=== PATIENT | female | born 1980 | race Caucasian/White ===

== ENCOUNTER → 2019-05-19 | Outpatient (CLI) | payer OTHER ==
[~2019-05-19] MED LIST: ACEBUTCAFT PO; AMOX500 PO; ONDA4ODT MM
== END | disposition home or self-care (01) ==
LOC: PLD 08:08 → LAB SHORT 08:08
DX: L72.0 Epidermal cyst (principal)
CPT/HCPCS: 88304

== ENCOUNTER → 2019-07-04 | Outpatient (CLI) | payer OTHER ==
[2019-07-04 18:51] LABS: Influenza A Negative (NEGATIVE); Influenza B Negative (NEGATIVE)
== END ==
LOC: LAB SHORT 11:40 → LAB 11:40
PROVIDERS: Nurse Practitioner Family
DX: R05 Cough (principal)
CPT/HCPCS: 87804

== ENCOUNTER → 2020-02-03 | Outpatient (CLI) | payer OTHER ==
[2020-02-05 13:08] LABS: HPV 16 Negative (Negative); HPV 18 Negative (Negative); HPV OTHER HR TYPES Negative (Negative)
== END ==
LOC: LAB UCHC 12:50 → LAB SHORT 12:50
PROVIDERS: Registered Nurse Community Health
DX: Z12.4 Encounter for screening for malignant neoplasm of cervix (principal); N94.89 Other specified conditions associated with female genital organs and menstrual cycle; N89.8 Other specified noninflammatory disorders of vagina
CPT/HCPCS: 87070; 87205; 87529; 87624; G0123

== ENCOUNTER → 2021-04-19 | Outpatient (CLI) | payer OTHER ==
[2021-04-19 15:58] LABS: BASOPHILS ABSOLUTE AUTO 0.03 K/mm3 (0.00-0.23); BASOPHILS PERCENT AUTO 0 % (0-2); EOSINOPHILS PERCENT AUTO 3 % (0-6); Hematocrit 36.4 % (33.0-51.0); IMMATURE GRAN ABSOLUTE AUTO 0.02 K/mm3 (0.00-0.10); IMMATURE GRAN PERCENT AUTO 0 % (0-1); LYMPHOCYTES ABSOLUTE AUTO 2.62 K/mm3 (0.84-5.20); LYMPHOCYTES PERCENT AUTO 29 % (21-46); MONOCYTES ABSOLUTE AUTO 0.46 K/mm3 (0.16-1.47); MONOCYTES PERCENT AUTO 5 % (4-13); Mean Corpuscular HGB 29.7 pg (26.0-34.0); Mean Corpuscular Volume 90 fL (80-100); Mean Platelet Volume 10.5 fL (9.1-12.4); NEUTROPHILS PERCENT AUTO 62 % (41-73); Platelet Count 285 K/mm3 (150-400); RDW Coefficient Variation 13.3 % (11.7-14.2); RDW Standard Deviation 44.3 fL (35.1-46.3); Red Blood Cell Count 4.04 M/mm3 (3.80-5.20); White Blood Cell Count 9.03 K/mm3 (4.00-11.30)
[2021-04-19 16:45] LABS: Anion Gap 6 mmol/L (6-16); Blood Urea Nitrogen 11 mg/dL (8-24); Bun/Creatinine Ratio 14.1 (12.0-20.0); CO2, Blood 27 mmol/L (21-32); Calcium, Blood 9.1 mg/dL (8.5-10.1); Chloride, Blood 107 mmol/L (98-108); Creatinine, Blood 0.78 mg/dL (0.40-1.00); Glomerular Filtration Rate >60 (60-); Glucose, Blood 88 mg/dL (70-99); Sodium, Blood 140 mmol/L (136-145)
== END | disposition home or self-care (01) ==
LOC: LAB SHORT 12:00
PROVIDERS: Family Medicine
DX: I10 Essential (primary) hypertension (principal)
CPT/HCPCS: 80048; 82043; 85025

== ENCOUNTER 2022-08-01 15:28 | Emergency (ER) | payer OTHER ==
[~2022-08-01] VITALS: Ht 180.3 cm; Wt 167.8 kg
[2022-08-01 15:55] LABS: BASOPHILS ABSOLUTE AUTO 0.03 K/mm3 (0.00-0.23); BASOPHILS PERCENT AUTO 0 % (0-2); EOSINOPHILS ABSOLUTE AUTO 0.05 K/mm3 (0.00-0.68); EOSINOPHILS PERCENT AUTO 0 % (0-6); Hematocrit 39.4 % (33.0-51.0); Hemoglobin 13.5 g/dL (11.5-16.0); IMMATURE GRAN ABSOLUTE AUTO 0.11 K/mm3 (0.00-0.10); IMMATURE GRAN PERCENT AUTO 1 % (0-1); LYMPHOCYTES ABSOLUTE AUTO 0.93 K/mm3 (0.84-5.20); LYMPHOCYTES PERCENT AUTO 5 % (21-46); MONOCYTES PERCENT AUTO 3 % (4-13); Mean Corpuscular HGB 28.8 pg (26.0-34.0); Mean Corpuscular HGB Conc 34.3 g/dL (31.5-36.5); Mean Corpuscular Volume 84 fL (80-100); Mean Platelet Volume 10.6 fL (9.1-12.4); NEUTROPHILS ABSOLUTE AUTO 18.57 K/mm3 (1.96-9.15); NEUTROPHILS PERCENT AUTO 92 % (41-73); Platelet Count 223 K/mm3 (150-400); RDW Coefficient Variation 14.4 % (11.7-14.2); RDW Standard Deviation 43.8 fL (35.1-46.3); Red Blood Cell Count 4.69 M/mm3 (3.80-5.20); White Blood Cell Count 20.29 K/mm3 (4.00-11.30)
[2022-08-01 16:27] LABS: Influenza A, PCR NEGATIVE (NEGATIVE); Influenza B, PCR NEGATIVE (NEGATIVE); Resp Syncytial Virus, PCR NEGATIVE (NEGATIVE); SARS-Cov-2 (COVID-19) PCR, MMC NEGATIVE (NEGATIVE)
[2022-08-01 16:29] LABS: Albumin, Blood 2.7 g/dL (3.4-5.0); Albumin/Globulin Ratio 0.6 (0.8-1.8); Bilirubin, Total 0.8 mg/dL (0.1-1.0); Bun/Creatinine Ratio 20.9 (12.0-20.0); Calcium, Blood 9.1 mg/dL (8.5-10.1); Creatinine, Blood 1.29 mg/dL (0.40-1.00); Globulin, Blood 4.5 g/dL (2.2-4.0); Potassium, Blood 3.1 mmol/L (3.5-5.5); Total Protein, Blood 7.2 g/dL (6.4-8.2)
[2022-08-01] MEDS ORDERED: ONDA4ODT MM (19:11)
[2022-08-01] MEDS ORDERED: CEPH500 PO (19:11)
[2022-08-01 19:35] LABS: Calcium, Ionized (POC) 1.01 mmol/L (1.10-1.46); Chloride (POC) 98 mmol/L (98-108); Creatinine (POC) 1.5 mg/dL (0.6-1.0); Glucose (ISTAT POC) 99 mg/dL (70-99); Hemoglobin (POC) 10.9 g/dL (12.0-16.0); Potassium (POC) 3.2 mmol/L (3.5-5.5); Sodium (POC) 135 mmol/L (135-148); Total CO2 (POC) 26 mmol/L (21-32)
[2022-08-01 20:02] LABS: Calcium, Blood 7.9 mg/dL (8.5-10.1); Creatinine, Blood 1.27 mg/dL (0.40-1.00); Potassium, Blood 3.3 mmol/L (3.5-5.5)
== END 2022-08-01 20:45 | disposition home or self-care (01) ==
LOC: ER 15:28
PROVIDERS: Physician Assistant; Student in an Organized Health Care Education/Training Program
DX: L03.116 Cellulitis of left lower limb (principal); R11.2 Nausea with vomiting, unspecified; E86.0 Dehydration; E87.6 Hypokalemia; N17.9 Acute kidney failure, unspecified; R19.7 Diarrhea, unspecified; Z20.822 Contact with and (suspected) exposure to COVID-19; I10 Essential (primary) hypertension
CPT/HCPCS: 0241U; 36415; 80047; 80048; 80053; 83605; 83690; 85014; 85025; 93971; 96361; 96374; 96375; 99284-25; A9270; J0690; J2405; J7030

== ENCOUNTER 2022-08-04 19:36 | Inpatient (IN) | payer OTHER ==
[~2022-08-04] VITALS: Ht 180.3 cm; Wt 162.0 kg
[~2022-08-04 19:36] MED LIST changes: +CEPH500 PO
[2022-08-04 22:49] LABS: Hematocrit 33.7 % (33.0-51.0); Hemoglobin 11.6 g/dL (11.5-16.0); Mean Corpuscular HGB Conc 34.4 g/dL (31.5-36.5); Mean Corpuscular Volume 84 fL (80-100); Platelet Count 360 K/mm3 (150-400); RDW Coefficient Variation 14.7 % (11.7-14.2); RDW Standard Deviation 45.8 fL (35.1-46.3); White Blood Cell Count 25.36 K/mm3 (4.00-11.30)
[2022-08-04 23:06] LABS: Albumin/Globulin Ratio 0.4 (0.8-1.8); Bilirubin, Total 0.3 mg/dL (0.1-1.0); Calcium, Blood 8.8 mg/dL (8.5-10.1); Creatinine, Blood 0.9 mg/dL (0.40-1.00); Globulin, Blood 5.1 g/dL (2.2-4.0); Potassium, Blood 3.3 mmol/L (3.5-5.5); Total Protein, Blood 7.1 g/dL (6.4-8.2)
[2022-08-04 23:12] LABS: BAND PERCENT MAN 11 % (0-8); BASOPHILS PERCENT MAN 0 % (0-2); EOSINOPHILS ABSOLUTE MAN 0.25 K/mm3 (0.00-0.68); EOSINOPHILS PERCENT MAN 1 % (0-6); LYMPHOCYTES ABSOLUTE MAN 1.01 K/mm3 (0.84-5.20); LYMPHOCYTES PERCENT MAN 4 % (21-46); MONOCYTES ABSOLUTE MAN 1.52 K/mm3 (0.16-1.47); MONOCYTES PERCENT MAN 6 % (4-13); MYELOCYTE PERCENT MAN 2 % (0-0); NEUTROPHILS ABSOLUTE MAN 22.06 K/mm3 (1.96-9.15); SEG NEUTROPHILS PERCENT MAN 76 % (41-73); TOTAL CELLS COUNTED 100
--- NOTE | 2022-08-05 00:57 | NUR ---
REPORT FROM [facility] D[facility] IN ER. PATIENT CURRENTLY RECEIVING 1ST SEPSIS BOLUS AND ZOSYN. 2ND BOLUS AND VANCOMYCIN HAVE ALSO BEEN ORDERED. WILL NOTIFY HOSPITALIST OF PATIENT'S ARRIVAL
[2022-08-05] MEDS ORDERED: AMPDEX15CR PO (04:34)
[2022-08-05] MEDS ORDERED: Lisinopril-Hct1 EAC4 (04:42)
[2022-08-05 05:19] LABS: Hematocrit 30.3 % (33.0-51.0); Hemoglobin 10.5 g/dL (11.5-16.0); Mean Corpuscular HGB 29.2 pg (26.0-34.0); Mean Corpuscular HGB Conc 34.7 g/dL (31.5-36.5); Mean Corpuscular Volume 84 fL (80-100); Platelet Count 344 K/mm3 (150-400); RDW Coefficient Variation 14.8 % (11.7-14.2); RDW Standard Deviation 45.8 fL (35.1-46.3); Red Blood Cell Count 3.59 M/mm3 (3.80-5.20)
[2022-08-05 05:55] LABS: Albumin, Blood 1.7 g/dL (3.4-5.0); Albumin/Globulin Ratio 0.4 (0.8-1.8); Bilirubin, Total 0.3 mg/dL (0.1-1.0); Bun/Creatinine Ratio 22.1 (12.0-20.0); Creatinine, Blood 0.72 mg/dL (0.40-1.00); Globulin, Blood 4.5 g/dL (2.2-4.0); Potassium, Blood 3.4 mmol/L (3.5-5.5); Total Protein, Blood 6.2 g/dL (6.4-8.2)
[2022-08-05 06:01] LABS: BAND PERCENT MAN 22 % (0-8); BASOPHILS PERCENT MAN 0 % (0-2); EOSINOPHILS PERCENT MAN 0 % (0-6); LYMPHOCYTES ABSOLUTE MAN 0.93 K/mm3 (0.84-5.20); LYMPHOCYTES PERCENT MAN 4 % (21-46); METAMYELOCYTE ABSOLUTE MAN 0.23 K/mm3 (0.00-0.00); METAMYELOCYTE PERCENT MAN 1 % (0-0); MONOCYTES ABSOLUTE MAN 1.17 K/mm3 (0.16-1.47); MONOCYTES PERCENT MAN 5 % (4-13); MYELOCYTE ABSOLUTE MAN 0.23 K/mm3 (0.00-0.00); MYELOCYTE PERCENT MAN 1 % (0-0); NEUTROPHILS ABSOLUTE MAN 20.82 K/mm3 (1.96-9.15); SEG NEUTROPHILS PERCENT MAN 67 % (41-73); TOTAL CELLS COUNTED 100
--- NOTE | 2022-08-05 08:25 | NUR ---
PATIENT ARRIVED TO ROOM 204 AROUND 0145 FROM ER. SHE IS A PLEASANT A&OX4 LADY WHO IS INDEPENDENT FROM BEDSIDE TO BEDSIDE COMMODE. LEFT OPEN BLISTER MEDIAL CALF DRAINING LARGE AMOUNTS OF SEROUS FLUIDS. HEAVY DISPOSABLE PADS REPLACED FREQUENTLY THROUGH THE NIGHT THEY SATURATED. PHOTOS ON CHART. BOLUS FLUIDS GIVEN PER ORDER SOON PATIENT ARRIVED. BOTH BAGS WELL VANCOMYCIN FINISHED BY O4OO. ONCOMING RN AND THIS RN DECIDED AGAINST DRESSING THE WOUND AT THIS TIME AND CONTINUING TO CHANGE THE PADS FREQUENTLY UNDERNEATH HER CALF
--- NOTE | 2022-08-05 17:09 | NUR ---
SHIFT SUMMARY PT AWAKE DURING SHIFT REPORT. ADMITTED FOR LLE CELLULITIS WITH WEEPING LRG BLISTERS TO LEG; PIC'S IN CHART. LRG AMT OF CONTINUOUS DRAINING; HEAVY PADS CHANGED FREQUENTLY. PT IS A&O, VERY PLEASANT AND CO-OP, CALLS FOR STAND BY ASSIST TO BTHRM. C/O PAIN TO L LEG AND REQUESTED PAIN MEDICATION, BUT DID NOT WANT TO TAKE FENTANYL. PT REPORTED TYLENOL INEFFECTIVE. DR JIMNEEZ NOTIFIED; NEW ORDERS PLACED. PT REPORTED ULTRAM VERY EFFECTIVE. VISITOR TO THIS AM FOR A WHILE. NAPPING OFF AND ON THIS AFTERNOON. DENIED FURTHER NEEDS. CALL LT IN REACH.
[2022-08-06 03:22] LABS: Hematocrit 29.5 % (33.0-51.0); Mean Corpuscular HGB 29.1 pg (26.0-34.0); Mean Corpuscular HGB Conc 33.9 g/dL (31.5-36.5); Mean Corpuscular Volume 86 fL (80-100); Mean Platelet Volume 9.6 fL (9.1-12.4); Platelet Count 366 K/mm3 (150-400); RDW Coefficient Variation 15.2 % (11.7-14.2); Red Blood Cell Count 3.44 M/mm3 (3.80-5.20); White Blood Cell Count 21.01 K/mm3 (4.00-11.30)
[2022-08-06 03:46] LABS: Albumin, Blood 1.9 g/dL (3.4-5.0); Albumin/Globulin Ratio 0.4 (0.8-1.8); Bilirubin, Total 0.3 mg/dL (0.1-1.0); Bun/Creatinine Ratio 13.3 (12.0-20.0); Calcium, Blood 8.1 mg/dL (8.5-10.1); Creatinine, Blood 0.68 mg/dL (0.40-1.00); Globulin, Blood 4.4 g/dL (2.2-4.0); Magnesium, Blood 2.3 mg/dL (1.6-2.4); Phosphorus, Blood 2.9 mg/dL (2.5-4.9); Potassium, Blood 3.8 mmol/L (3.5-5.5); Total Protein, Blood 6.3 g/dL (6.4-8.2)
--- NOTE | 2022-08-06 04:31 | NUR ---
PATIENT A&OX4. FEELING BETTER TONIGHT. APPETITE IMPROVING. AREA OF CELLULITIS APPEARS MOSTLY UNCHANGED EXCEPT BLISTERS ON DORSAL AREA OF FOOT LOOK THEY MAY BE GETTING MORE WATERY LIKE THEY ARE GOING TO POP. TOLERATING IV ANTIBIOTICS WELL.
--- NOTE | 2022-08-06 16:55 | NUR ---
SHIFT SUMMARY PT AWAKE DURING SHIFT REPORT THIS AM, RESTING QUIETLY. DENIED NEEDS. REPORTED ULTRAM EFFECTIVE FOR PAIN CONTROL. LLE CONTINUES TO WEEP. REDNESS DOES NOT APPEAR TO HAVE SPREAD FURTHER. NO INCREASE IN PAIN OR SWELLING OVER NIGHT OR TODAY. DR RODRIGUEZ AND DR BAUTISTA BOTH IN TO SEE PT AND DISCUSS PLAN OF CARE. PT LATER UP TO SHOWER. ABLE TO AMBULATE IN RM TO BTHRM NEEDED, CAREFULLY. LASIX IV GIVEN X1. PT HAVING SEVERAL VISITORS THRU OUT THE DAY. EATING AND DRINKING WELL. IV ABX ADMINISTERED PER EMAR. RESTING QUIETLY AT THIS TIME. CALL LT IN REACH.
--- NOTE | 2022-08-06 20:41 | NUR ---
LLE STILL VERY SWOLLEN WITH BLISTERS ENLARGING. SWELLING OVER ALL SLIGHTLY DECREASED WITH A LITTLE MORE MOBILITY, PT STATED. STILL VERY RED AND ANGRY LOOKING, BUT NOT INCREASED. PT RECEIVING IV ABX PER EMAR. REPORT GIVEN TO TATA OLIVA.
[2022-08-07 03:19] LABS: Hematocrit 29.4 % (33.0-51.0); Hemoglobin 9.9 g/dL (11.5-16.0); Mean Corpuscular HGB Conc 33.7 g/dL (31.5-36.5); Mean Corpuscular Volume 86 fL (80-100); Mean Platelet Volume 9.4 fL (9.1-12.4); Platelet Count 395 K/mm3 (150-400); RDW Coefficient Variation 15.1 % (11.7-14.2); RDW Standard Deviation 47.9 fL (35.1-46.3); Red Blood Cell Count 3.41 M/mm3 (3.80-5.20); White Blood Cell Count 20.21 K/mm3 (4.00-11.30)
[2022-08-07 03:36] LABS: Bun/Creatinine Ratio 12.7 (12.0-20.0); Calcium, Blood 8.2 mg/dL (8.5-10.1); Creatinine, Blood 0.71 mg/dL (0.40-1.00); Potassium, Blood 3.4 mmol/L (3.5-5.5)
[2022-08-07 03:39] LABS: BAND PERCENT MAN 10 % (0-8); BASOPHILS PERCENT MAN 0 % (0-2); EOSINOPHILS PERCENT MAN 0 % (0-6); LYMPHOCYTES ABSOLUTE MAN 2.22 K/mm3 (0.84-5.20); LYMPHOCYTES PERCENT MAN 11 % (21-46); METAMYELOCYTE PERCENT MAN 2 % (0-0); MONOCYTES PERCENT MAN 3 % (4-13); MYELOCYTE PERCENT MAN 2 % (0-0); NEUTROPHILS ABSOLUTE MAN 16.57 K/mm3 (1.96-9.15); SEG NEUTROPHILS PERCENT MAN 72 % (41-73); TOTAL CELLS COUNTED 100
[2022-08-07 03:41] LABS: Vancomycin, Trough 18.4 ug/mL (5.0-10.0)
--- NOTE | 2022-08-07 06:31 | NUR ---
ANTIBIOTICS TOLERATED, PER PATIENT LESS LLE WEEPING. TRAMADOL GIVEN X2 THIS SHIFT FOR PAIN, REPORTS IT IS EFFECTIVE. UP AD JOSE, VSS ON RA, AOX4, PLEASANT, UNEVENTFUL NIGHT.
--- NOTE | 2022-08-07 18:30 | NUR ---
PATIENT A/OX4, UP INDEPENDENTLY IN ROOM. VSS, ON RA. GERARGLIDE TO SHINE WNL AND SL BETWEEN ABX. LLE RED AND WEEPING, LASIX GIVEN X1 WITH GOOD URINE OUTPUT AND SOME RELIEF OF PRESSURE IN LLE. RECEIVING ABX. TRAMADOL GIVEN TO TREAT PAIN WITH ADEQUATE RELIEF PER PATIENT. COOPERATIVE WITH CARE AND ABLE TO MAKE NEEDS KNOWN. NO NEW CONCERNS THIS SHIFT.
[2022-08-08 05:16] LABS: Hemoglobin 10.1 g/dL (11.5-16.0); Mean Corpuscular HGB 28.9 pg (26.0-34.0); Mean Corpuscular HGB Conc 33.7 g/dL (31.5-36.5); Mean Corpuscular Volume 86 fL (80-100); Mean Platelet Volume 9.5 fL (9.1-12.4); Platelet Count 426 K/mm3 (150-400); RDW Coefficient Variation 14.9 % (11.7-14.2)
[2022-08-08 05:53] LABS: Albumin, Blood 1.9 g/dL (3.4-5.0); Albumin/Globulin Ratio 0.4 (0.8-1.8); Bilirubin, Total 0.5 mg/dL (0.1-1.0); Bun/Creatinine Ratio 13.9 (12.0-20.0); Calcium, Blood 8.2 mg/dL (8.5-10.1); Creatinine, Blood 0.72 mg/dL (0.40-1.00); Globulin, Blood 4.9 g/dL (2.2-4.0); Potassium, Blood 3.4 mmol/L (3.5-5.5); Total Protein, Blood 6.8 g/dL (6.4-8.2)
--- NOTE | 2022-08-08 06:11 | NUR ---
VSS, AOX4, INDEPENDENT, PLEASANT, TOLERATING ANTIBIOTICS, WBC'S TRENDING WELL, POWERGLIDE FLUSHES NICELY BUT DOES NOT DRAW, SMALL AMOUNT OF WEEPING LLE, TRAMADOL GIVEN X2 FOR PAIN. VANCO TROUGH ORDERED FOR TODAY AT 1500. UNEVENTFUL NIGHT.
[2022-08-08 06:13] LABS: BAND PERCENT MAN 1 % (0-8); BASOPHILS PERCENT MAN 0 % (0-2); EOSINOPHILS ABSOLUTE MAN 1.06 K/mm3 (0.00-0.68); EOSINOPHILS PERCENT MAN 7 % (0-6); LYMPHOCYTES ABSOLUTE MAN 2.73 K/mm3 (0.84-5.20); LYMPHOCYTES PERCENT MAN 18 % (21-46); METAMYELOCYTE ABSOLUTE MAN 0.15 K/mm3 (0.00-0.00); METAMYELOCYTE PERCENT MAN 1 % (0-0); MONOCYTES ABSOLUTE MAN 0.91 K/mm3 (0.16-1.47); MONOCYTES PERCENT MAN 6 % (4-13); NEUTROPHILS ABSOLUTE MAN 10.33 K/mm3 (1.96-9.15); SEG NEUTROPHILS PERCENT MAN 67 % (41-73); TOTAL CELLS COUNTED 100
[2022-08-08 15:47] LABS: Vancomycin, Trough 17.1 ug/mL (5.0-10.0)
--- NOTE | 2022-08-08 17:40 | NUR ---
NO ACUTE CHANGES THIS SHIFT. PATIENT CONTINUES WITH IV ABX. TRAMADOL WORKING WELL FOR PAIN CONTROL. PATIENT IS UP INDEPENDENTLY IN ROOM. VSS, ON RA. CALM AND COOPERATIVE WITH CARE AND ABLE TO MAKE NEEDS KNOWN.
[2022-08-08] MEDS ORDERED: KLOR-CON 1010 ME1 PO (23:53)
[2022-08-08] MEDS ORDERED: ADDERALL XR 1515 MG PO (23:53)
[2022-08-09 05:25] LABS: Hemoglobin 10.2 g/dL (11.5-16.0); Mean Corpuscular HGB 28.6 pg (26.0-34.0); Mean Corpuscular HGB Conc 32.9 g/dL (31.5-36.5); Mean Corpuscular Volume 87 fL (80-100); Mean Platelet Volume 9.3 fL (9.1-12.4); Platelet Count 441 K/mm3 (150-400); RDW Coefficient Variation 14.7 % (11.7-14.2); RDW Standard Deviation 46.8 fL (35.1-46.3); Red Blood Cell Count 3.57 M/mm3 (3.80-5.20); White Blood Cell Count 13.38 K/mm3 (4.00-11.30)
--- NOTE | 2022-08-09 06:00 | NUR ---
WBC'S CONTINUE TO TREND WELL, TOLERATING CARES. INDEPENDENT, AMBULATES WITH LLE PAIN. TRAMADOL X2. TOLERATING ANTIBIOTICS. VSS. POWERGLIDE FLUSHES WELL, NOT DRAWING. NO SIGNIFICANT CHANGES.
[2022-08-09 06:19] LABS: Bun/Creatinine Ratio 15.5 (12.0-20.0); Calcium, Blood 8.3 mg/dL (8.5-10.1); Creatinine, Blood 0.77 mg/dL (0.40-1.00); Potassium, Blood 3.4 mmol/L (3.5-5.5)
[2022-08-09] MEDS ORDERED: Prinivil10 MG PO (12:30)
[2022-08-09] MEDS ORDERED: HYDCHL25 PO (12:30)
[2022-08-09] MEDS ORDERED: VISBIOME 112.51 EACH PO (12:31)
[2022-08-09] MEDS ORDERED: SULTRIDS PO (12:31)
[2022-08-09] MEDS ORDERED: TRAM50 PO (12:31)
--- NOTE | 2022-08-09 13:40 | NUR ---
PATIENT D/C'D TO HOME WITH FAMILY. DC INSTRUCTIONS AND EDUCATION DISCUSSED WITH PATIENT AND COPY PROVIDED. HARD SCRPT FOR TRAMADOL GIVEN TO PATIENT. PATIENT DENIES ANY FURTHER QUESTIONS AND CONCERNS.
== END 2022-08-09 13:42 | disposition home or self-care (01) | DRG 872 ==
LOC: ER 19:36 → MEDS 23:29
PROVIDERS: Family Medicine; Student in an Organized Health Care Education/Training Program; ADMIT Internal Medicine
DX: A41.9 Sepsis, unspecified organism (principal); L03.116 Cellulitis of left lower limb; F90.9 Attention-deficit hyperactivity disorder, unspecified type; I10 Essential (primary) hypertension; E87.6 Hypokalemia; I89.0 Lymphedema, not elsewhere classified; D72.825 Bandemia; Z79.899 Other long term (current) drug therapy; Z79.2 Long term (current) use of antibiotics
CPT/HCPCS: 36415; 36416; 73701; 80048; 80053; 80202; 83605; 83735; 84100; 85025; 85027; 87040; 93005; 93010; 96374-59; 99285-25; A9270; J0690; J1650; J1940; J2543; J3370; J7030; J7050; J7120; P9046; Q9967

== ENCOUNTER → 2022-09-06 | Outpatient (CLI) | payer OTHER ==
[~2022-09-06] MED LIST changes: +ADDERALL XR 1515 MG PO; +AMPDEX15CR PO; +HYDCHL25 PO; +KLOR-CON 1010 ME1 PO; +Lisinopril-Hct1 EAC4; +Prinivil10 MG PO; +SULTRIDS PO; +TRAM50 PO; +VISBIOME 112.51 EACH PO
[2022-09-08 14:10] LABS: COTININE Negative ng/mL (Cutoff=300)
== END | disposition home or self-care (01) ==
LOC: LAB 12:41 → LAB SHORT 12:41
PROVIDERS: Family Medicine
DX: E66.01 Morbid (severe) obesity due to excess calories (principal)

== ENCOUNTER 2022-11-01 03:25 | Day surgery (SDC) | payer OTHER ==
[~2022-11-01 03:25] MED LIST changes: +ACET325 PO; +CEFTRIAXONE2 G1 IV; +FURO40 PO; +POTCHL20ER PO
[2022-11-01 08:37] VITALS: BP 125/69
== END 2022-11-01 09:03 | disposition home or self-care (01) ==
LOC: ATC 03:25
DX: L03.116 Cellulitis of left lower limb (principal); I10 Essential (primary) hypertension; Z88.1 Allergy status to other antibiotic agents; I89.0 Lymphedema, not elsewhere classified; E66.9 Obesity, unspecified
CPT/HCPCS: 96374; J0696

== ENCOUNTER 2022-11-02 03:49 | Day surgery (SDC) | payer OTHER ==
[2022-11-02 09:37] VITALS: BP 124/78
--- NOTE | 2022-11-02 09:47 | NUR ---
PT HAD REPORTED FEELING NAUSEATED AND DIZZY IMMEDIATELY AFTER HER DOSE YESTERDAY. GAVE IV PUSH SLOWLY OVER 7 MIN TODAY. NO NAUSEA OR DIZZINESS TODAY.
== END 2022-11-02 09:44 | disposition home or self-care (01) ==
LOC: ATC 03:49
DX: L03.116 Cellulitis of left lower limb (principal); I10 Essential (primary) hypertension; I89.0 Lymphedema, not elsewhere classified; E66.9 Obesity, unspecified; Z88.1 Allergy status to other antibiotic agents
CPT/HCPCS: 96374; J0696

== ENCOUNTER 2022-11-05 01:25 | Day surgery (SDC) | payer OTHER ==
[2022-11-05 11:25] VITALS: BP 132/59
== END 2022-11-05 11:30 | disposition home or self-care (01) ==
LOC: ATC 01:25
DX: L03.116 Cellulitis of left lower limb (principal); I10 Essential (primary) hypertension; I89.0 Lymphedema, not elsewhere classified; E66.9 Obesity, unspecified; Z88.1 Allergy status to other antibiotic agents; Z79.899 Other long term (current) drug therapy
CPT/HCPCS: 96374; C1751; J0696

== ENCOUNTER 2022-11-06 03:33 | Day surgery (SDC) | payer OTHER ==
[2022-11-06 13:48] VITALS: BP 127/91
== END 2022-11-06 13:56 | disposition home or self-care (01) ==
LOC: ATC 03:33
DX: L03.116 Cellulitis of left lower limb (principal); I10 Essential (primary) hypertension; E66.9 Obesity, unspecified; Z88.1 Allergy status to other antibiotic agents
CPT/HCPCS: J0696

== ENCOUNTER 2022-11-07 03:17 | Day surgery (SDC) | payer OTHER ==
[2022-11-07 09:31] VITALS: BP 138/88
== END 2022-11-07 09:40 | disposition home or self-care (01) ==
LOC: ATC 03:17
DX: L03.116 Cellulitis of left lower limb (principal); Z88.1 Allergy status to other antibiotic agents; F90.9 Attention-deficit hyperactivity disorder, unspecified type; I10 Essential (primary) hypertension
CPT/HCPCS: J0696

== ENCOUNTER 2022-11-08 04:02 | Day surgery (SDC) | payer OTHER | END 2022-11-08 09:51 | disposition home or self-care (01) | LOC: ATC 04:02 | DX: L03.116 Cellulitis of left lower limb (principal); F90.9 Attention-deficit hyperactivity disorder, unspecified type; I10 Essential (primary) hypertension; E66.9 Obesity, unspecified | CPT/HCPCS: J0696 ==

== ENCOUNTER 2022-11-09 03:39 | Day surgery (SDC) | payer OTHER ==
[2022-11-09 09:33] VITALS: BP 136/81
== END 2022-11-09 09:39 | disposition home or self-care (01) ==
LOC: ATC 03:39
DX: L03.116 Cellulitis of left lower limb (principal); I10 Essential (primary) hypertension; E66.9 Obesity, unspecified; I89.0 Lymphedema, not elsewhere classified; Z88.1 Allergy status to other antibiotic agents
CPT/HCPCS: 96374; J0696

== ENCOUNTER 2022-11-10 03:02 | Day surgery (SDC) | payer OTHER ==
[2022-11-10 10:54] VITALS: BP 126/88
== END 2022-11-10 11:03 | disposition home or self-care (01) ==
LOC: ATC 03:02
DX: L03.116 Cellulitis of left lower limb (principal); F90.9 Attention-deficit hyperactivity disorder, unspecified type; I10 Essential (primary) hypertension; Z88.1 Allergy status to other antibiotic agents; E66.9 Obesity, unspecified
CPT/HCPCS: 96374; J0696

== ENCOUNTER → 2022-11-15 | Outpatient (CLI) | payer OTHER ==
[2022-11-15 18:12] LABS: Bun/Creatinine Ratio 22.1 (12.0-20.0); Calcium, Blood 9.3 mg/dL (8.5-10.1); Creatinine, Blood 0.72 mg/dL (0.40-1.00); Potassium, Blood 3.9 mmol/L (3.5-5.5)
== END | disposition home or self-care (01) ==
LOC: LAB SHORT 14:55 → LAB 14:55
PROVIDERS: Student in an Organized Health Care Education/Training Program
DX: R60.0 Localized edema (principal)
CPT/HCPCS: 80048

== ENCOUNTER → 2023-01-05 | Outpatient (CLI) | payer OTHER ==
[2023-01-09 13:10] LABS: HPV 16 Negative (Negative); HPV 18 Negative (Negative); HPV OTHER HR TYPES Negative (Negative)
== END ==
LOC: LAB 18:12 → LAB SHORT 18:12
PROVIDERS: Family Medicine
DX: Z12.4 Encounter for screening for malignant neoplasm of cervix (principal)
CPT/HCPCS: 87624; G0145